=== PATIENT | male | born 1940 | race Caucasian/White ===

== ENCOUNTER 2022-12-04 20:05 | Emergency (ER) | payer MEDICARE, OTHER ==
[~2022-12-04] VITALS: Ht 177.8 cm; Wt 95.2 kg
[2022-12-04] MEDS ORDERED: ZYRTEC10 MG PO (20:38)
[2022-12-04] MEDS ORDERED: LISINOPRIL10 MG PO (20:38)
[2022-12-04] MEDS ORDERED: LEVOTHYROXINE100 MC2 PO (20:38)
[2022-12-04] MEDS ORDERED: ZOCOR40 MG PO (20:38)
[2022-12-04 22:27] VITALS: BP 123/70
--- NOTE | 2022-12-05 00:02 | EKG ---
[facility] [address] [place] [address] Signed Normal sinus rhythm with sinus arrhythmia Normal ECG No previous ECGs available Confirmed by JUNI HECTOR MD ([id number]) on 12/05/2022 12:01:49 AM Electronically Signed By: JUNI HECTOR MD 12/05/22 0002 PATIENT NAME: COOPER GUAMAN Electrocardiogram DATE OF : 40 PHYSICIAN: JUNI HECTOR MD REPORT #: [id number] REPORT IS CONFIDENTIAL AND NOT TO BE RELEASED WITHOUT AUTHORIZATION
== END 2022-12-04 22:28 | disposition home or self-care (01) ==
LOC: ED 20:05
DX: B34.9 Viral infection, unspecified (principal); I10 Essential (primary) hypertension; Z79.899 Other long term (current) drug therapy
CPT/HCPCS: 36415; 71045; 80053; 81003; 83605; 85025; 93005; 93010; 99284-25

== ENCOUNTER 2023-11-25 07:13 | Day surgery (SDC) | payer OTHER ==
[2023-11-20 08:09] VITALS: BP 146/81
[~2023-11-25] VITALS: Ht 177.8 cm; Wt 95.5 kg
[~2023-11-25 07:13] MED LIST: CIPROFLOXACIN 0.3% 5 ML HOME.PACK ONE; DEXAMETHASONE SOD PHOS 4 MG/ML VIAL ONE; FAMOTIDINE 20 MG/ 2 ML VIAL ONE; IBLOOD GLUCOSE TEST STRIP 1 EA TEST VI PRN; KETOROLAC TROMETHAMINE 30 MG/ML VIAL ONE; LACTATED RINGER'S 1,000 ML IV ONE; LACTATED RINGER'S 1,000 ML IV SCH; LEVOTHYROXINE100 MC2 PO; LIDOCAINE HCL 1% 5 ML SDV INJ ONE; LISINOPRIL10 MG PO; METOCLOPRAMIDE HCL 10 MG/2 ML SDV ONE; ZOCOR40 MG PO; ZYRTEC10 MG PO; fentaNYL citrate 100 MCG/2 ML VIAL ONE; ondansetron HCL 4 MG/2 ML VIAL ONE; propofoL 200 MG/20 ML VIAL ONE
[2023-11-25 07:23] VITALS: BP 141/73
--- NOTE | 2023-11-25 07:28 | NUR ---
UNABLE TO VISIT DURING SPIRITUAL CARE ROUNDS; PT RECEIVING NURSING CARE WHICH I DID NOT INTERRUPT. PROVIDED PRAYER.
[2023-11-25] MEDS ORDERED: CEFAZOLIN SODIUM 2 GM/20 ML SYR IV ONE (08:00)
[2023-11-25] MEDS ORDERED: CIPROFLOXACIN 0.3% 5 ML HOME.PACK OTIC ONE (08:30)
[2023-11-25] MEDS ORDERED: dexmedeTOMIDine HCl 200 MCG/2 ML VIAL ONE (09:12)
--- NOTE | 2023-11-25 09:39 | NUR ---
11/25/23 0939 Pamela Lawrence 0923 PT ARRIVED IN PACU SLEEPY WITH NO C/O'S. BILAT COTTON BALLS IN BOTH EARS. 934 SITTING UP IN BED SIPPING ON WATER.
[2023-11-25 10:40] VITALS: BP 134/74
--- NOTE | 2023-11-25 10:46 | NUR ---
LE 0944 PATIENT BACK TO DAY SURGERY ROOM 6. VITAL SIGNS COMPLETED. PATIENT ALERT AND ORIENTED. BREATHING EQUAL AND UNLABORED. OXYGEN SATURATIONS ABOVE 90% ON ROOM AIR. PATIENT DENIES PAIN OR BEING NAUSEATED. PATIENT HAS COTTON BALLS IN EARS. NO DRAINAGE AT THIS TIME. IVF INFUSING. SCD'S ON. PATIENT DRINKING WATER AND EATING PUDDING. LE 1015 PATIENT DRESSED SELF. PATIENT AMBULATED TO THE BATHROOM WELL. PATIENT VOIDED ONE UNMEASURED VOID. LE 1040 PATIENT GIVEN DISCHARGE INSTRUCTIONS. NO QUESTIONS AT THIS TIME. PATIENT IV D/C'D WNL. PATIENT WHEELED OUT OF FACILITY. NO FUTHER NEEDS.
--- NOTE | 2023-11-25 13:04 | OR ---
[facility] [address] [place], [place] [address] Signed DATE OF OPERATION: 11/25/2023 SURGEON: Anjel Eckert MD PREOPERATIVE DIAGNOSIS: Hearing loss due to eustachian tube dysfunction. POSTOPERATIVE DIAGNOSIS: Hearing loss due to eustachian tube dysfunction. PROCEDURES: Bilateral myringotomy and ventilation tube insertion. ANESTHESIA: General LMA, Cooper WYNN. PREOPERATIVE HISTORY: Mr. Guaman is an 83-year-old man with eustachian tube dysfunction, difficulty clearing his ears, taken to the operating room for the above-mentioned procedures. OPERATIVE PROCEDURE AND FINDINGS: After informed consent, the patient was taken to the operating room, placed in the supine position where general LMA anesthesia was induced. The patient and procedure were verified. The patient was repositioned. Left ear was examined with the operating microscope. Anterior inferior radial myringotomy was made. No middle ear effusion. Lemon tube placed in myringotomy site. Ofloxacin ophthalmic drops applied to the ear canal, cotton ball to the meatus. Same procedure and same findings on the right ear. The patient tolerated the procedure well, was awakened, extubated, transported to recovery room in good condition. No complications. BLOOD LOSS: Minimal. SPECIMEN: No specimens. DRAINS: No drains. Electronically Signed By: ANJEL ECKERT MD 11/25/23 1304 PATIENT NAME: COOPER GUAMAN OPERATIVE REPORT DATE OF : 40 REPORT #: [id number] PHYSICIAN: ANJEL ECKERT MD PCP: NO PRIMARY CARE PHYSICIAN REPORT IS CONFIDENTIAL AND NOT TO BE RELEASED WITHOUT AUTHORIZATION [address] [place] [address] Signed Anjel Eckert MD /[facility] /[id number] Copies: ~ Electronically Signed By: ANJEL ECKERT MD 11/25/23 1304 PATIENT NAME: COOPER GUAMAN OPERATIVE REPORT DATE OF : 40 REPORT #: [id number] PHYSICIAN: ANJEL ECKERT MD PCP: NO PRIMARY CARE PHYSICIAN REPORT IS CONFIDENTIAL AND NOT TO BE RELEASED WITHOUT AUTHORIZATION
--- NOTE | 2023-11-25 21:31 | EKG ---
[facility] [address] [place] [address] Signed Sinus rhythm with marked sinus arrhythmia Otherwise normal ECG When compared with ECG of 04-DEC-2022 20:41, Vent. rate has decreased BY 34 BPM Confirmed by Baltazar Bone MD () on 11/25/2023 9:31:58 PM Electronically Signed By: BALTAZAR BONE MD 11/25/232130 PATIENT NAME: COOPER GUAMAN Electrocardiogram DATE OF : 40 PHYSICIAN: BALTAZAR BONE MD REPORT #: [id number] REPORT IS CONFIDENTIAL AND NOT TO BE RELEASED WITHOUT AUTHORIZATION
== END 2023-11-25 10:39 | disposition home or self-care (01) ==
LOC: OPS 07:13 → DS 07:13 → OPS 07:30 → DS 07:30 → OPS 09:00
PROVIDERS: ATTEND Otolaryngology
PROC: 099570Z Drainage of Right Middle Ear with Drainage Device, Via Natural or Artificial Opening (ICD-10-PCS; 2023-11-25)
PROC: 099670Z Drainage of Left Middle Ear with Drainage Device, Via Natural or Artificial Opening (ICD-10-PCS; principal; 2023-11-25 09:00)
DX: H69.83 Other specified disorders of Eustachian tube, bilateral (principal); H90.3 Sensorineural hearing loss, bilateral; Z79.899 Other long term (current) drug therapy
CPT/HCPCS: 00126; 93005; 93010; J0690; J1100; J1885; J2405; J2704; J2765; J3010; J7121

== ENCOUNTER 2024-02-13 09:00 | Emergency (ER) | payer OTHER, MEDICARE ==
[~2024-02-13] VITALS: Ht 177.8 cm; Wt 101.4 kg
[~2024-02-13 09:00] MED LIST changes: -CIPROFLOXACIN 0.3% 5 ML HOME.PACK ONE; -DEXAMETHASONE SOD PHOS 4 MG/ML VIAL ONE; -FAMOTIDINE 20 MG/ 2 ML VIAL ONE; -IBLOOD GLUCOSE TEST STRIP 1 EA TEST VI PRN; -KETOROLAC TROMETHAMINE 30 MG/ML VIAL ONE; -LACTATED RINGER'S 1,000 ML IV ONE; -LACTATED RINGER'S 1,000 ML IV SCH; -LIDOCAINE HCL 1% 5 ML SDV INJ ONE; -METOCLOPRAMIDE HCL 10 MG/2 ML SDV ONE; -fentaNYL citrate 100 MCG/2 ML VIAL ONE; -ondansetron HCL 4 MG/2 ML VIAL ONE; -propofoL 200 MG/20 ML VIAL ONE
[2024-02-13] MEDS ORDERED: AMOXICILLIN 500 MG CAP PO ONE (09:30)
[2024-02-13] MEDS ORDERED: AMOX TR-K CLV1 EAC1 PO (09:31)
[2024-02-13 09:45] VITALS: BP 128/78
== END 2024-02-13 09:45 | disposition home or self-care (01) ==
LOC: ED 09:00
DX: H66.92 Otitis media, unspecified, left ear (principal); I10 Essential (primary) hypertension; Z79.890 Hormone replacement therapy; Z79.899 Other long term (current) drug therapy
CPT/HCPCS: 99282

== ENCOUNTER 2024-08-30 06:52 | Day surgery (SDC) | payer OTHER ==
[2024-08-26 09:04] VITALS: BP 129/71
[~2024-08-30] VITALS: Ht 177.8 cm; Wt 100.0 kg
[~2024-08-30 06:52] MED LIST changes: +AMOX TR-K CLV1 EAC1 PO; +LACTATED RINGER'S 1,000 ML IV SCH
[2024-08-30] MEDS ORDERED: LIDOCAINE HCL 1% 5 ML SDV INJ ONE (07:00)
[2024-08-30] MEDS ORDERED: IBLOOD GLUCOSE TEST STRIP 1 EA TEST VI PRN (07:00)
[2024-08-30] MEDS ORDERED: CEFAZOLIN SODIUM 2 GM/20 ML SYR IV SCH (07:00)
[2024-08-30 07:23] VITALS: BP 135/92
--- NOTE | 2024-08-30 07:24 | NUR ---
PT NOT AVAILABLE FOR VISIT. PROVIDED PRAYER.
[2024-08-30] MEDS ORDERED: propofoL 200 MG/20 ML VIAL ONE ×2 (08:09→11:40)
[2024-08-30] MEDS ORDERED: LIDOCAINE HCL 2% 5 ML SDV ONE (08:09)
[2024-08-30] MEDS ORDERED: fentaNYL citrate 100 MCG/2 ML VIAL ONE ×2 (08:09→09:27)
[2024-08-30] MEDS ORDERED: ondansetron HCL 4 MG/2 ML VIAL IV PRN (09:00)
[2024-08-30] MEDS ORDERED: HYDROmorphone HCL 1 MG/ML SYR IV PRN (09:00)
[2024-08-30] MEDS ORDERED: OXYCODONE/APAP 5/325 TAB PO PRN (09:00)
[2024-08-30] MEDS ORDERED: TRAMADOL HCL 50 MG TAB PO PRN (09:00)
[2024-08-30] MEDS ORDERED: DEXAMETHASONE SOD PHOS 4 MG/ML VIAL ONE (09:04)
[2024-08-30] MEDS ORDERED: ondansetron HCL 4 MG/2 ML VIAL ONE ×2 (09:04→11:13)
[2024-08-30] MEDS ORDERED: ePHEDrine sulfate 50 MG/ML AMP ONE (09:05)
[2024-08-30] MEDS ORDERED: LACTATED RINGER'S 1,000 ML IV ONE (09:33)
--- NOTE | 2024-08-30 10:52 | NUR ---
08/30/24 1052 Pamela Lawrence 1026 PT ARRIVED IN PACU NON RESPONSIVE TO NOXIOUS STIMULI WITH OPA IN PLACE. 1047 PT REACTIVE. OPA REMOVED. 1050 PT AWAKE AND TALKING TO STAFF.
[2024-08-30] MEDS ORDERED: BUPIVACAINE 0.75% IN DEXTROSE 2 ML AMP ONE (10:53)
[2024-08-30 10:58] VITALS: BP 147/77
--- NOTE | 2024-08-30 11:10 | NUR ---
PT ARRIVED BACK TO DAY SURGERY VIA BED. PT ALERT AND ORIENTED. HAS NO COMPLAINTS OF PAIN OR NAUSEA AT THIS TIME. PT HAS DRESSING IN PLACE WITH A SMALL AMOUTN OF DRAINAGE. PTS DAUGHTER AT BEDSIDE.
--- NOTE | 2024-08-30 12:15 | NUR ---
PT DISCHARGED TO HOME WITH INSTRUTIONS ON MEDICATION , FOLLOW-UP, WHEN TO CONTACT THE PROVIDER, WOUND CARE, ACTIVITY, AND DIET. PT VERBALIZED UNDERSTANDING AND LEFT FOR HOME WITH ALL BELONGINGS.
[2024-08-30] MEDS ORDERED: SEVOFLURANE 250 ML BTL INH ONE (15:19)
== END 2024-08-30 12:15 | disposition home or self-care (01) ==
LOC: OPS 06:52 → DS 06:52 → OPS 09:10 → DS 09:10 → OPS 12:15
PROVIDERS: ATTEND Urology
PROC: 0VTTXZZ Resection of Prepuce, External Approach (ICD-10-PCS; principal; 2024-08-30 09:10)
DX: N47.1 Phimosis (principal); N48.0 Leukoplakia of penis; I10 Essential (primary) hypertension; E78.5 Hyperlipidemia, unspecified; E03.9 Hypothyroidism, unspecified; Z79.890 Hormone replacement therapy; Z79.899 Other long term (current) drug therapy
CPT/HCPCS: 00920; J0690; J1100; J2003; J2405; J2704; J3010; J7121